=== PATIENT | female | born 1990 | race Caucasian/White ===

== ENCOUNTER 2022-04-23 11:34 | Emergency (ER) | payer OTHER ==
[~2022-04-23] VITALS: Ht 170.2 cm; Wt 49.9 kg
--- NOTE | 2022-04-23 11:45 | NUR ---
LEO FROM [facility] C/O RIGHT FINGER PAIN X2 DAY. PAIN IS 8/10 ON PAIN SCALE. AWAITING MD ORDERS.
--- NOTE | 2022-04-23 13:10 | NUR ---
X RAY AT BEDSIDE
[2022-04-23] MEDS ORDERED: LIDOCAINE /MPF 1% VIAL 5 ML VIAL TP ONE (14:30)
[2022-04-23] MEDS ORDERED: LIDOCAINE 1% INJ 50 ML MDV IJ ONE (15:18)
--- NOTE | 2022-04-23 15:34 | NUR ---
Patient discharged to home in stable condition. Written and verbal after care instructions given. Patient verbalizes understanding of instruction.
[2022-04-23 15:42] VITALS: BP 99/52
== END 2022-04-23 15:42 ==
LOC: ER 11:34
DX: S63.284A Dislocation of proximal interphalangeal joint of right ring finger, initial encounter (principal); W18.30XA Fall on same level, unspecified, initial encounter; Y93.89 Activity, other specified; Y92.148 Other place in prison as the place of occurrence of the external cause; Y99.8 Other external cause status
CPT/HCPCS: 99284; 26770; 73130; J3490